=== PATIENT | female | born 1955 | race Two or more races ===

== ENCOUNTER 2019-06-09 14:16 | Emergency (ER) | payer OTHER, MEDICARE ==
[2019-06-09 14:54] LABS: BASOPHILS # (AUTO) 0.05 x10^3/uL (0-0.1); BASOPHILS % (AUTO) 1 % (0-1); EOSINOPHILS # (AUTO) 0.11 x10^3/uL (0-0.4); EOSINOPHILS % (AUTO) 2 % (1-7); LYMPHOCYTES # (AUTO) 1.65 x10^3/uL (1-3.4); LYMPHOCYTES % (AUTO) 27 % (22-44); MD NO; MEAN CORPUSCULAR HEMOGLOBIN 31.3 pg (27.0-34.8); MEAN CORPUSCULAR HGB CONC 33.7 g/dL (32.4-35.8); MEAN CORPUSCULAR VOLUME 92.9 fL (80-100); MEAN PLATELET VOLUME 7.9 fL (7.4-10.4); MONOCYTES # (AUTO) 0.36 x10^3/uL (0.2-0.8); MONOCYTES % (AUTO) 6 % (2-9); NEUTROPHILS % (AUTO) 65 % (42-75); PLATELET COUNT 306 x10^3/uL (130-400); RED BLOOD COUNT 4.31 x10^6/uL (3.82-5.3); RED CELL DISTRIBUTION WIDTH 12.4 % (9.6-15.2)
[2019-06-09 15:01] LABS: ALBUMIN 3.6 g/dL (3.4-5.0); ANION GAP 6 mmol/L (5-15); CALCIUM 8.7 mg/dL (8.5-10.1); CHLORIDE 110 mmol/L (98-107); SALICYLATE LEVEL 4.8 mg/dL (2.8-20.0)
[2019-06-09 15:04] LABS: ALANINE AMINOTRANSFERASE 18 U/L (12-78); ALKALINE PHOSPHATASE 77 U/L (45-117); BILIRUBIN,TOTAL 0.6 mg/dL (0.2-1.0); CREATININE 0.75 mg/dL (0.55-1.02); TOTAL PROTEIN 6.9 g/dL (6.4-8.2)
--- NOTE | 2019-06-09 15:25 | NUR ---
PT BIB EMS FOR CO DEPRESSION AND ONGOING HEADACHE. PT VINCENTIAN SPEAKING. USED [facility]. PT STATES SHE STOPPED TAKING HER DEPRESSION MEDICATION, DOES NOT REMEMBER WHAT IT IS. PT STATES SHE WISHES TO BE GONE BUT DOES NOT WANT TO HARM HERSELF OR HAS EVER TRIED. PT DOES NOT KNOW WHY SHE FEELS LIKE THIS, BUT WHEN SHE DOES SHE WANTS TO BE GONE. PT PROVIDED UA, LABS COMPLETED.
[2019-06-09 15:34] LABS: MICROSCOPIC NOT IND
[2019-06-09 15:45] LABS: AMPHETAMINE SCREEN, URINE Negative (Negative); BARBITURATE SCREEN, URINE Negative (Negative); BENZODIAZEPINE SCREEN, URINE Negative (Negative); CANNABINOID SCREEN, URINE Negative (Negative); COCAINE SCREEN, URINE Negative (Negative); METHADONE SCREEN, URINE Negative (Negative); OPIATE SCREEN, URINE Negative (Negative)
[2019-06-09 15:46] LABS: CULTURE INDICATED? NO
--- NOTE | 2019-06-09 16:58 | NUR ---
PT RESTING, VSS, NO NEEDS AT THIS TIME. PLAN FOR PYANTONELLA EVAL
[2019-06-09 17:18] VITALS: BP 120/78
--- NOTE | 2019-06-09 17:18 | NUR ---
HAMILTON VERGARA AT BEDSIDE
--- NOTE | 2019-06-09 17:51 | NUR ---
PT WILL BE PLACED ON A HOLD. PT BELONGING IN SECURE LOCKER. PT IN SECURE ROOM. PER JAI VILLASENOR, PT HAS THOUGHTS OF HURTING HERSELF W ROPE. PURSE AND PHONE IN SECURE LOCKER. PT IN GOWN. MEAL TRAY ORDERED. PT AGREEABLE
[2019-06-09] MEDS ORDERED: SERTRALINE 50MG TABLET PO SCH (18:00)
[2019-06-09] MEDS ORDERED: HYDROXYZINE PAMOATE 50MG CAP PO PRN (18:00)
[2019-06-09] MEDS ORDERED: TRAZODONE 50MG TABLET PO PRN (18:00)
[2019-06-09] MEDS ORDERED: NICOTINE 21 MG/24 HR PATCH.TD24 TD ONE (18:30)
--- NOTE | 2019-06-09 18:59 | NUR ---
FAMILY AT BEDSIDE VISITING. SITTER PRESENT
[2019-06-09] MEDS ORDERED: NICOTINE 21 MG/24 HR PATCH.TD24 ONE (19:41)
[2019-06-09] MEDS ORDERED: SERTRALINE 50MG TABLET ONE ×2 (19:41→19:43)
--- NOTE | 2019-06-09 19:44 | NUR ---
Refused by [facility] due to non contracted insurance.
--- NOTE | 2019-06-09 19:55 | NUR ---
PT MEDICATED PER ORDERS. GIVEN CRACKERS AND WATER. SITTER PRESENT.
--- NOTE | 2019-06-09 20:10 | NUR ---
Mental health placement Packet faxed to [facility], Osman lodi, [facility], Torey Tabares. Fax confirmed.
--- NOTE | 2019-06-09 20:55 | NUR ---
Nocturnal RN received report and assumed patient care. Sitter in hallway, able to visualize patient. Patient appears to be sleeping comfortably. Allowing to sleep per normal circadian rhythm. Awaiting transfer to psychiatric facility.
--- NOTE | 2019-06-09 22:03 | NUR ---
Dr. Ferguson accepted pt at [facility]
== END 2019-06-10 00:35 ==
LOC: ED 18:20 → EDBD 18:20 → ED 06-10 00:35
DX: F32.9 Major depressive disorder, single episode, unspecified (principal); R45.851 Suicidal ideations; Z79.899 Other long term (current) drug therapy
CPT/HCPCS: 36415; 70450; 80053; 80307; 81003; 82140; 85025; 93005; 99285